=== PATIENT | male | born 1955 | race Two or more races ===

== ENCOUNTER 2020-06-26 21:10 | Emergency (ER) | payer SELFPAY ==
[~2020-06-26] VITALS: Ht 167.6 cm; Wt 84.0 kg
--- NOTE | 2020-06-26 22:05 | PHYS DOC ---
Past Medical History Past Medical History: No Pertinent History Past Surgical History: No Surgical History Smoking Status: Never Smoker Alcohol Use: None Drug Use: None General Adult EDM: Chief Complaint: FEVER HPI: HPI: Patient is a 65 year Welsh-speaking male presents with report of generalized malaise and fatigue x1 week. Reports he is "just a little tired". Patient reports he was recently diagnosed with COVID-19 on 06/17/2020. Patient reports concern that he may not be getting better and is concerned for staying home at this time. Patient denies any shortness of breath. Reports has had continued fever. Reports was 100.0 F prior to arrival. Patient does report taking Ibuprofen for this fever prior to arrival. Patient reports he is also been quarantining at his home. Review of Systems: Review of Systems: Constitutional: Reports fever, chills, generalized malaise, and fatigue Eyes: Denies redness or eye pain HENT: Denies nasal congestion or sore throat Respiratory: Denies cough or shortness of breath Cardiovascular: Denies chest pain or palpitations GI: Denies abdominal pain, nausea, or vomiting : Denies dysuria or hematuria Musculoskeletal: Denies back pain or joint pain Integument: Denies rash or skin lesions Neurologic: Denies headache, focal weakness or sensory changes Complete systems were reviewed and found to be within normal limits, except as documented in this note. Current Medications: Current Medications Medications (Trade) Dose Ordered Sig/[facility] Start Time Stop Time Status Last Admin Dose Admin Dexamethasone (Decadron) 10 mg 1X ONCE 06/26/20 21:45 06/26/20 21:46 UNV Physical Exam: PE: Constitutional: Well developed, well nourished, no acute distress, non-toxic appearance HENT: Normocephalic, atraumatic Eyes: Conjunctiva normal, no discharge Neck: Normal range of motion, no tenderness, supple, no meningeal signs Lungs & Thorax: No respiratory distress, equal chest rise and fall Abdomen: Soft, no tenderness, no guarding/rebound tenderness/distention Skin: Warm, dry, no erythema, no rash Extremities: No tenderness, ROM intact, no edema Neurologic: Alert and oriented X 3, no focal deficits noted Psychologic: Affect normal, judgment normal EKG: EKG: @2120 NSR at 90bpm, NO ST elevation, QRS 92ms, QT/QTc 360/444ms Radiology/Procedures: Radiology/Procedures: PROCEDURE: CHEST AP ONLY EXAM: XR CHEST 1V 06/26/2020 9:47 PM CLINICAL INDICATION: Cough, Covid COMPARISON: None TECHNIQUE: AP upright view the chest FINDINGS: The heart and mediastinum are normal. Lungs are adequately expanded. There are focal opacities in the mid right lung. No pleural effusion or pneumothorax. No acute osseous abnormality. IMPRESSION: Right airspace opacities suspicious for pneumonia. Electronically signed by: Maira Batista MD (06/26/2020 10:50 PM) [id number] Course & Med Decision Making: Course & Med Decision Making Pertinent Imaging studies reviewed. (See chart for details) Patient presents with known COVID-19 infection. Patient reports generalized malaise and fatigue. Patient also reports continued fevers. Fever previously addressed at his home. Oxygen saturation normal. Patient denies any shortness of air. Chest x-ray with possible signs of pneumonia. One-time dose of symptomatic oral dexamethasone provided. Rx for azithromycin provided. Patient stable for discharge with outpatient follow-up with PCP. Discussed findings and plan with patient, who acknowledges understanding and agreement. Dragon Disclaimer: Dragon Disclaimer: This electronic medical record was generated, in whole or in part, using a voice recognition dictation system. Departure Departure Impression: Primary Impression: COVID-19 Disposition: 01 DC HOME SELF CARE/HOMELESS Condition: STABLE Patient Instructions: Viral Syndrome Additional Instructions: Definicin Se le realiz la prueba de deteccin del COVID-19 o se le diagnostic dicha enfermedad. Es bobbi infeccin ocasionada por un nuevo tipo de coronavirus. En la mayora de los casos, el COVID-19 provoca sntomas similares a los del resfriado. En algunas personas, puede ocasionar sntomas ms graves, jose problemas respiratorios. No existe un tratamiento para el virus COVID-19. El cuerpo elimina la infeccin con el tiempo. El cuidado personal ayuda a aliviar el malestar. Pasos que debe seguir 1. Cuidados personales Descanse cuando sea necesario. Los hbitos saludables pueden ayudarlo a sentirse mejor. Algunas medidas para lograr cambios incluyen lo siguiente: - Elija alimentos saludables, jose frutas y verduras. Catalina abundante cantidad de agua pauline todo el da. - Duerma lisseth por la noche. - Si fuma, intente no hacerlo. Amo ayudar a mejorar la respiracin. - Evite el alcohol. 2. Mantenga sanos a los dems El virus puede contagiarse a otras personas. Cada vez que estornuda o tose, se liberan gotitas. Las gotitas pueden entrar en la boca, la nariz o los ojos de las personas que se encuentran cerca de usted y ocasionar la infeccin. Para reducir las probabilidades de contagiar el virus COVID-19 a otros, tenga en cuenta lo siguiente: - Qudese en casa el tiempo que el mdico se lo indique. Es posible que deba quedarse en casa hasta que la enfermedad desaparezca. Salga nicamente para recibir atencin mdica o en zoe de urgencia. - Evite las reas pblicas, los eventos o el transporte pblico. No reanude las actividades laborales o escolares hasta que el mdico lo autorice. - Llame previamente si necesita asistir a un centro mdico. Avise que es posible que haya contrado COVID-19. Amo ayudar a que le indiquen adonde debe dirigirse. Tambin pueden pedirle que use bobbi mscara facial cuando vaya al consultorio. Si llama a los servicios de asistencia mdica de urgencias, avseles que es posible que haya contrado COVID-19. Mientras est en casa: - Evite el contacto directo con otras personas. Mantngase a bobbi distancia aproximada de 2 metros. Si es posible, pasen la mayor parte del tiempo en escalante separadas. - Use bobbi mscara facial si estar en contacto directo con otras personas, por ejemplo, si compartir bobbi habitacin o un vehculo. - Pida a alguien que limpie las superficies comunes de la casa. Limpie picaportes, mesadas y lavamanos con limpiadores domsticos todos los kauffman. - Al toser o estornudar, cbrase con un pauelo de papel. Despus de usarlo, deschelo de inmediato. Si no tiene un pauelo de papel, tosa o estornude en el pliegue del codo. - Lvese las haroon con frecuencia. Lvese las haroon despus de estornudar o toser. Lvese con agua y jabn pauline, al menos, 20 segundos. Si no dispone de agua y jabn, use un limpiador de haroon a base de alcohol. - No cocine para otros. Evite compartir objetos personales, jose tenedores, cucharas o cepillos de dientes. - Mientras est enfermo, evite el contacto directo con las mascotas. No hay indicios de si el virus se transmite a las mascotas. Esta es bobbi medida de seguridad que debe tenerse en cuenta hasta que se sepa ms acerca de candido virus. El aislamiento puede ser frustrante. La interaccin social puede ayudar. Mantngase en contacto con amigos y familiares por telfono u otros medios tecnolgicos. Puede interactuar con otras personas en el hogar, jack mantenga bobbi distancia chowdhury de aproximadamente 2 metros. Seguimiento Las pruebas para confirmar la presencia del COVID-19 pueden demorar algunos kauffman. Es posible que deba seguir los pasos mencionados anteriormente hasta que estn los resultados de las pruebas. Lo llamarn del consultorio mdico para saber si bustos habido algn cambio en ray paula. Ashok le avisarn cuando pueda volver a estar cerca de otras personas. Problemas a los que debe estar atento Comunquese con el mdico si no se recupera segn lo previsto o si tiene problemas jose los siguientes: - Dificultad para respirar - Dolor de pecho - Empeoramiento de los sntomas Si sage que tiene bobbi urgencia, llame a los servicios de asistencia mdica de urgencias de inmediato. As taken from [employer] Azithromycin (ZITHROMAX) 250 Mg Tablet 1 PKG PO UD for COVID pneumonia, #6 TAB Take 2 tablets on day 1 and then 1 tablet each day for the next 4 days as directed Prov: RICKI JACKSON DO 06/26/20 RICKI JACKSON DO Jun 26, 2020 22:05
[2020-06-26 22:30] VITALS: BP 138/76
[2020-06-26] MEDS ORDERED: DEXAMETHASONE 4 MG TABLET PO ONE (22:30)
--- NOTE | 2020-06-26 22:53 | RAD ---
EXAM: XR CHEST 1V 06/26/2020 9:47 PM CLINICAL INDICATION: Cough, Covid COMPARISON: None TECHNIQUE: AP upright view the chest FINDINGS: The heart and mediastinum are normal. Lungs are adequately expanded. There are focal opaci ties in the mid right lung. No pleural effusion or pneumothorax. No acute osseous abnormality. IMPRESSION: Right airspace opacities suspicious for pneumonia. Electronically signed by: Maira Batista MD (06/26/2020 10:50 PM) [id number]
[2020-06-26] MEDS ORDERED: AZIT250T PO (23:00)
--- NOTE | 2020-06-27 03:12 | EKG ---
[facility] [address] [place] [address] Test Date: 2020-06-26 Test Time: 21:20:37 Pat Name: EDWARD THIBODEAUX Department: Room: Gender: M Magnetic Tester: : 1955 Requested By: RICKI JACKSON Order Number: [id number] Reading MD: Measurements Intervals [place] Rate: 90 P: 41 IL: 130 QRS: -3 QRSD: 92 T: 57 QT: 360 QTc: 444 Interpretive Statements SINUS RHYTHM LEFTWARD AXIS OTHERWISE NORMAL ECG RI6.02 No previous ECG available for comparison
== END 2020-06-26 22:50 | disposition home or self-care (01) ==
LOC: ER 21:10
DX: U07.1 COVID-19 (principal); R53.81 Other malaise; R53.83 Other fatigue; R50.9 Fever, unspecified
CPT/HCPCS: 71045; 93005; 99283